=== PATIENT | female | born 1965 | race Caucasian/White ===

== ENCOUNTER 2023-06-19 07:59 | Outpatient (CLI) | payer OTHER, BC, SELFPAY | END 2023-06-19 08:00 | disposition home or self-care (01) | PROVIDERS: Visit Provider Family Medicine | DX: M54.16 Radiculopathy, lumbar region (principal); M51.26 Other intervertebral disc displacement, lumbar region | CPT/HCPCS: 64483; J1100; Q9966 ==

== ENCOUNTER 2024-05-09 06:51 | Outpatient (CLI) | payer BC, SELFPAY | END 2024-05-09 06:52 | disposition home or self-care (01) | LOC: INJ CL 06:53 | PROVIDERS: Visit Provider Family Medicine | DX: M54.16 Radiculopathy, lumbar region (principal); M51.369 Other intervertebral disc degeneration, lumbar region without mention of lumbar back pain or lower extremity pain | CPT/HCPCS: 64483; J1100; Q9966 ==